=== PATIENT | male | born 1995 | race Two or more races ===

== ENCOUNTER 2019-01-17 20:03 | Inpatient (IN) | payer OTHER, MEDICAID ==
[~2019-01-17] VITALS: Ht 188 cm; Wt 81.6 kg
[2019-01-17] MEDS ORDERED: SODIUM CHLORIDE 0.9% 1,000 ML IV ONE (20:45)
[2019-01-17] MEDS ORDERED: KETOROLAC 30MG/ML VIAL IV ONE (20:45)
[2019-01-17 21:08] LABS: HEMATOCRIT. 43.9 % (42.0-52.0); HEMOGLOBIN. 14.8 g/dL (14.0-18.0); MEAN CORPUSCULAR HEMOGLOBIN 29.8 pg (28.0-32.0); MEAN CORPUSCULAR VOLUME 88.7 fL (80.0-94.0); MEAN PLATELET VOLUME 7.7 fl (7.4-10.4); PLATELET 162 x1000/uL (130-400); RED BLOOD CELL COUNT 4.95 mill/uL (4.7-6.1); RED CELL DISTRIBUTION WIDTH 13.4 % (11.6-14.6)
[2019-01-17 21:13] LABS: CLARITY URINE CLOUDY (CLEAR); COLOR URINE YELLOW (YELLOW); KETONES URINE 3+ (NEGATIVE); LEUKOCYTE ESTERASE URINE NEGATIVE (NEGATIVE); NITRITE URINE NEGATIVE (NEGATIVE); OCCULT BLOOD URINE NEGATIVE (NEGATIVE); PH URINE 7.5 (4.5-8.0); PROTEIN URINE TRACE (NEGATIVE)
[2019-01-17 21:15] LABS: CHLORIDE 102 mEq/L (98-107)
[2019-01-17 21:26] LABS: *BARBITURATES SCREEN URINE NEGATIVE (NEGATIVE); *BENZODIAZEPINES SCREEN URINE NEGATIVE (NEGATIVE); *COCAINE SCREEN URINE NEGATIVE (NEGATIVE); METHADONE URINE SCREEN NEGATIVE (NEGATIVE); OPIATES URINE SCREEN NEGATIVE (NEGATIVE); PHENCYCLIDINE URINE SCREEN NEGATIVE (NEGATIVE)
[2019-01-17 21:28] LABS: *AMPHETAMINES SCREEN URINE NEGATIVE (NEGATIVE); CANNABINOID URINE SCREEN NEGATIVE (NEGATIVE)
[2019-01-17 21:49] LABS: PLATELET ESTIMATE NORMAL
[2019-01-17 21:54] LABS: CREATINE KINASE 13519 IU/L (39-308)
[2019-01-17] MEDS ORDERED: MAGNESIUM/ALUMINUM HYDROXIDE/SIMETHICONE 30ML UDC PO PRN (22:30)
[2019-01-17] MEDS ORDERED: LORAZEPAM 0.5MG TABLET PO PRN (22:30)
[2019-01-17] MEDS ORDERED: ZOLPIDEM TARTRATE 5MG TABLET PO PRN (22:30)
[2019-01-17] MEDS ORDERED: NITROGLYCERIN 0.4MG TABLET SL SL PRN (22:30)
[2019-01-17] MEDS ORDERED: CLONIDINE 0.1MG TABLET PO PRN (22:30)
[2019-01-17] MEDS ORDERED: IPRATROPIUM/ALBUTEROL 0.5-3(2.5)MG/3ML NEB INH PRN (22:30)
[2019-01-17] MEDS ORDERED: ONDANSETRON HCL 4MG/2ML INJ IV PRN (22:30)
[2019-01-17] MEDS ORDERED: KETOROLAC 15MG/ML VIAL IV PRN (22:30)
[2019-01-17] MEDS ORDERED: DOCUSATE SODIUM 100MG CAPSULE PO PRN (22:30)
[2019-01-17] MEDS ORDERED: GUAIFENESIN 200MG/10ML SUGAR FREE UDC PO PRN (22:30)
[2019-01-17] MEDS ORDERED: ACETAMINOPHEN 325MG TABLET PO PRN (22:30)
[2019-01-18 07:53] LABS: CREATINE KINASE 10522 IU/L (39-308)
[2019-01-18 11:44] VITALS: BP 129/68
[2019-01-18 11:56] VITALS: BP 129/68
[2019-01-18] MEDS ORDERED: POTASSIUM CHLORIDE 20MEQ TABLET SR PO NR (12:00)
[2019-01-18] MEDS: FAMOTIDINE 20MG TABLET PO SCH ×2 (12:35→20:44)
[2019-01-18] MEDS: CITRIC ACID/SODIUM CITRATE SOLN 15ML UDC PO SCH ×2 (12:35→18:09)
[2019-01-18] MEDS: SODIUM CHLORIDE 0.9% 1,000 ML IV SCH ×2 (12:36→20:45)
[2019-01-18] MEDS ORDERED: KCL 20MEQ/100ML PREMIX 100 ML IV NR (15:00)
[2019-01-18 16:00] VITALS: BP 120/58
[2019-01-18 20:02] VITALS: BP 118/66
[2019-01-18] MEDS ORDERED: POTASSIUM CHLORIDE 20MEQ TABLET SR PO SCH (22:09)
[2019-01-19 00:11] VITALS: BP 107/50
[2019-01-19] MEDS: SODIUM CHLORIDE 0.9% 1,000 ML IV SCH ×3 (03:57→10:30)
[2019-01-19 03:59] VITALS: BP 119/65
[2019-01-19 07:07] LABS: CHLORIDE 107 mEq/L (98-107)
[2019-01-19 08:16] LABS: CREATINE KINASE 7952 IU/L (39-308)
[2019-01-19] MEDS: CITRIC ACID/SODIUM CITRATE SOLN 15ML UDC PO SCH (08:17)
[2019-01-19] MEDS: FAMOTIDINE 20MG TABLET PO SCH (08:17)
== END 2019-01-19 15:00 | disposition home or self-care (01) | DRG 351 ==
LOC: ER 20:03 → 6WST 22:10 → ENRESERV 01-18 10:02
PROVIDERS: ADMIT Internal Medicine; ATTEND Internal Medicine
DX: M62.82 Rhabdomyolysis (principal); E87.6 Hypokalemia; F12.90 Cannabis use, unspecified, uncomplicated; F17.210 Nicotine dependence, cigarettes, uncomplicated; R74.0 Nonspecific elevation of levels of transaminase and lactic acid dehydrogenase [LDH]
CPT/HCPCS: 36415; 80305; 80320; 82550; 83036; 99285; J1885; J3480; J7030; G0480